=== PATIENT | female | born 1945 | race African-American/Black ===

== ENCOUNTER 2025-02-23 08:28 | Outpatient (CLI) | payer OTHER | END 2025-02-23 08:29 | disposition home or self-care (01) | LOC: NM 08:28 | PROVIDERS: ATTEND Internal Medicine Cardiovascular Disease | DX: R07.9 Chest pain, unspecified (principal) | CPT/HCPCS: 36000; 78452; 93017; A9502; J2785 ×2 ==

== ENCOUNTER 2025-03-15 11:59 | Outpatient (CLI) | payer OTHER ==
[2025-03-15 13:34] LABS: #Basophils 0.03 10x3/uL (0.0-0.2); #Eosinophils 0.13 10x3/uL (0.0-0.7); #Monocytes 0.25 10x3/uL (0.11-0.59); #Neutrophils 1.60 10x3/uL (1.40-6.50); %Basophils 0.9 % (0.0-1.0); %Eosinophils 4.0 % (0.0-10.0); %Lymphocytes 38.2 % (21.0-51.0); %Monocytes 7.7 % (0.0-10.0); %Neutrophils 49.2 % (42.0-75.0); Hematocrit 37.7 % (36.0-47.0); Hemoglobin 11.8 g/dL (12.0-16.0); Mean Corpuscular Hemoglobin 28.4 pg (27.0-31.0); Mean Corpuscular Volume 90.6 fL (78.0-98.0); Platelet Count 229 10x3/uL (130-400); Red Blood Cell (RBC) Count 4.16 mill/uL (4.20-5.40); White Blood Cell (WBC) Count 3.25 10x3/uL (4.8-10.8)
[2025-03-15 14:04] LABS: ALT (SGPT) 7 U/L (Less than 34); AST (SGOT) 18 U/L (11-34); Albumin 3.7 g/dL (3.1-4.5); Alkaline Phosphatase 107 U/L (40-110); Anion Gap 16 mmol/L (10-20); BUN (Urea Nitrogen) 16 mg/dL (9.8-20.1); Bilirubin, Total 0.4 mg/dL (0.3-1.2); Calc. Creatinine Clearance 0 mL/min (70-130); Calcium 10.2 mg/dL (7.8-10.44); Carbon Dioxide 21 mmol/L (23-31); Chloride 108 mmol/L (98-107); Globulin 3.7 g/dL (2.4-3.5); Glucose 84 mg/dL (83-110); Potassium 3.6 mmol/L (3.5-5.1); Sodium 141 mmol/L (136-145)
== END 2025-03-15 12:00 | disposition home or self-care (01) ==
LOC: LABBT 11:59
PROVIDERS: ATTEND Internal Medicine Cardiovascular Disease
DX: Z01.818 Encounter for other preprocedural examination (principal); R07.9 Chest pain, unspecified
CPT/HCPCS: 80053; 85025; 93005; 93010

== ENCOUNTER 2025-03-18 07:59 | Day surgery (SDC) | payer OTHER, MEDICAID ==
[2025-03-15 12:13] VITALS: BMI 28.3
[2025-03-18] MEDS ORDERED: Adenosine 6 mg (2 mL) VIAL ONE (10:46)
[2025-03-18] MEDS ORDERED: Heparin 10,000 UNITS/ 10 ML VIAL ONE (10:46)
[2025-03-18] MEDS ORDERED: hydrALAZINE 20 MG/ML VIAL ONE (10:46)
[2025-03-18] MEDS ORDERED: PHENYLEPHRINE-NS 100 MCG/ML 10 ML SYRINGE ONE (10:47)
[2025-03-18] MEDS ORDERED: Nitroglycerin 50 MG/250 ML BOT 0 ML ONE (10:47)
[2025-03-18] MEDS ORDERED: Lidocaine 1% (PF) 30 ML VIAL ONE (10:47)
[2025-03-18] MEDS ORDERED: Iopamidol 370 76% 100 ML VIAL ONE (12:51)
== END 2025-03-18 17:05 | disposition home or self-care (01) ==
LOC: CCL 07:59
PROVIDERS: ATTEND Internal Medicine Cardiovascular Disease
PROC: 4A023N7 Measurement of Cardiac Sampling and Pressure, Left Heart, Percutaneous Approach (ICD-10-PCS; principal; 2025-03-18)
DX: R07.9 Chest pain, unspecified (principal); R06.02 Shortness of breath; I25.10 Atherosclerotic heart disease of native coronary artery without angina pectoris; I11.0 Hypertensive heart disease with heart failure; I50.9 Heart failure, unspecified; E78.5 Hyperlipidemia, unspecified; M10.9 Gout, unspecified; Z95.1 Presence of aortocoronary bypass graft; Z86.73 Personal history of transient ischemic attack (TIA), and cerebral infarction without residual deficits; Z87.891 Personal history of nicotine dependence; Z79.02 Long term (current) use of antithrombotics/antiplatelets; Z79.899 Other long term (current) drug therapy
CPT/HCPCS: 93459; C1769; C1887; C1894; J0360; J2250; Q9967; 99152; 99153; J0153; J0461; J1644